=== PATIENT | female | born 1975 | race Asian ===

== ENCOUNTER 2016-09-11 09:37 | Emergency (ER) | payer OTHER ==
[~2016-09-11] VITALS: Ht 185.4 cm; Wt 117.5 kg
[2016-09-11 09:54] VITALS: BP 164/98; TEMP 98.4
[2016-09-11] MEDS ORDERED: AVONEX30 MCG IM (09:58)
[2016-09-11] MEDS ORDERED: PROPRANOLOL60 MG OR (09:59)
== END 2016-09-11 11:45 | disposition home health service (06) ==
LOC: ED 09:37
DX: J11.1 Influenza due to unidentified influenza virus with other respiratory manifestations (principal)
CPT/HCPCS: 87804; 99282

== ENCOUNTER 2017-05-31 22:27 | Emergency (ER) | payer OTHER ==
[~2017-05-31] VITALS: Ht 182.9 cm; Wt 110.7 kg
[~2017-05-31 22:27] MED LIST: AVONEX30 MCG IM; PROPRANOLOL60 MG OR
[2017-05-31] MEDS ORDERED: LISI5TAB10 PO (22:52)
[2017-06-01 00:30] VITALS: BP 138/99; TEMP 97.8
== END 2017-06-01 00:30 | disposition home or self-care (01) ==
LOC: ED 22:27
DX: I16.0 Hypertensive urgency (principal)
CPT/HCPCS: 99283

== ENCOUNTER 2017-10-16 08:32 | Outpatient (CLI) | payer OTHER ==
[~2017-10-16 08:32] MED LIST changes: +LISI5TAB10 PO
== END 2017-10-16 19:17 | disposition home or self-care (01) ==
LOC: MRI 08:32
DX: G35 Multiple sclerosis (principal)
CPT/HCPCS: 36415; 82565; 84520; A9576

== ENCOUNTER 2018-05-17 09:00 | Outpatient (CLI) | payer OTHER ==
[2018-05-17 09:17] LABS: PLATELET COUNT 252 K/uL (152-353)
[2018-05-17 10:12] LABS: POTASSIUM 4.2 mmol/L (3.6-5.2)
== END 2018-05-17 19:41 | disposition home or self-care (01) ==
LOC: LABW 09:00
PROVIDERS: Specialist
DX: G35 Multiple sclerosis (principal); E53.8 Deficiency of other specified B group vitamins; G25.81 Restless legs syndrome
CPT/HCPCS: 36415; 80053; 82607; 85027; 85651

== ENCOUNTER 2018-09-05 10:09 | Outpatient (CLI) | payer OTHER | END 2018-09-05 21:33 | disposition home or self-care (01) | LOC: RAD 10:09 | DX: R05 Cough (principal) ==

== ENCOUNTER 2018-10-11 07:00 | Outpatient (CLI) | payer OTHER ==
[2018-10-11 07:38] LABS: PLATELET COUNT 237 K/uL (152-353)
== END 2018-10-11 22:20 | disposition home or self-care (01) ==
LOC: LABW 07:00
PROVIDERS: Specialist
DX: G35 Multiple sclerosis (principal)
CPT/HCPCS: 36415; 80053; 85027

== ENCOUNTER 2019-09-09 19:10 | Emergency (ER) | payer OTHER ==
[~2019-09-09] VITALS: Ht 180.3 cm; Wt 115.8 kg
[2019-09-09 21:30] VITALS: BP 163/110; TEMP 97.9
== END 2019-09-09 21:30 | disposition home or self-care (01) ==
LOC: ED 19:10
DX: Z04.3 Encounter for examination and observation following other accident (principal)
CPT/HCPCS: 99283

== ENCOUNTER 2019-09-21 14:11 | Outpatient (CLI) | payer OTHER | END 2019-09-21 20:59 | disposition home or self-care (01) | LOC: RAD 14:11 | DX: M54.2 Cervicalgia (principal); M54.5 Low back pain; M54.6 Pain in thoracic spine ==

== ENCOUNTER 2019-10-01 10:48 | Observation (INO) | payer OTHER ==
[~2019-10-01] VITALS: Ht 180.3 cm; Wt 111.8 kg
[2019-10-01] VITALS (13 sets, daily range): BP systolic 148–191; BP diastolic 95–131; TEMP 97–99.1
[2019-10-01 11:32] LABS: PLATELET COUNT 262 K/uL (152-353)
[2019-10-01 11:40] LABS: POTASSIUM 3.9 mmol/L (3.6-5.2); SODIUM 136 mmol/L (136-145)
[2019-10-02] VITALS: BP 109/63; TEMP 99.1
[2019-10-02 03:30] VITALS: BP 123/66; TEMP 99
[2019-10-02 08:24] LABS: POTASSIUM 3.7 mmol/L (3.6-5.2)
[2019-10-02 08:50] VITALS: BP 125/85; TEMP 98.7
[2019-10-02 12:03] VITALS: BP 131/76; TEMP 98.5
[2019-10-02] MEDS ORDERED: GABA300C2 PO (15:03)
[2019-10-02] MEDS ORDERED: PROPRANOLOL10 MG PO (15:05)
[2019-10-02] MEDS ORDERED: RAZADYNE8 MG PO (15:13)
[2019-10-02] MEDS ORDERED: CYCL10TA35 PO ×2 (15:17)
[2019-10-02] MEDS ORDERED: IBU800 MG PO (15:18)
== END 2019-10-02 19:02 | disposition home or self-care (01) ==
LOC: ED 10:48 → MED/SURG 16:15
PROVIDERS: Family Medicine; ADMIT Family Medicine
DX: I10 Essential (primary) hypertension (principal); M79.602 Pain in left arm; G25.81 Restless legs syndrome; G35 Multiple sclerosis; Z79.899 Other long term (current) drug therapy; Z51.81 Encounter for therapeutic drug level monitoring
CPT/HCPCS: 36415; 80053; 80307; 81000; 82550; 83880; 84443; 84484; 85027; 85651; 86140; 93005; 96374; 96375; 99220; 99284; G0378; J0360; J1940; J2930; J3490

== ENCOUNTER 2020-10-31 10:40 | Outpatient (CLI) | payer OTHER ==
[~2020-10-31 10:40] MED LIST changes: +CYCL10TA35 PO; +GABA300C2 PO; +IBU800 MG PO; +PROPRANOLOL10 MG PO; +RAZADYNE8 MG PO
== END 2020-10-31 20:38 | disposition home or self-care (01) ==
LOC: LABW 10:40
PROVIDERS: ATTEND Specialist
DX: G35 Multiple sclerosis (principal)
CPT/HCPCS: 36415; 86255

== ENCOUNTER 2021-08-14 17:13 | Emergency (ER) | payer OTHER ==
[~2021-08-14] VITALS: Ht 180.3 cm; Wt 108.9 kg
[2021-08-14 18:04] LABS: PLATELET COUNT 289 K/uL (152-353)
[2021-08-14 18:08] LABS: POTASSIUM 3.6 mmol/L (3.6-5.2)
[2021-08-14 19:16] LABS: PARTIAL THROMBOPLASTIN TIME 26.1 SECONDS (24.5-33.6)
[2021-08-14 20:05] VITALS: BP 176/95; TEMP 98.1
== END 2021-08-14 20:05 | disposition short-term general hospital (02) ==
LOC: ED 17:13
PROVIDERS: Family Medicine
DX: M79.605 Pain in left leg (principal); M79.604 Pain in right leg; Z96.651 Presence of right artificial knee joint; Z11.52 Encounter for screening for COVID-19
CPT/HCPCS: 36415; 80053; 85027; 85379; 85610; 85730; 87635; 96372; 99284; J1885; U0003

== ENCOUNTER 2022-06-22 13:04 | Outpatient (CLI) | payer OTHER ==
[2022-06-22 13:25] LABS: PLATELET COUNT 243 K/uL (152-353)
[2022-06-22 13:52] LABS: POTASSIUM 3.6 mmol/L (3.6-5.2)
== END 2022-06-22 21:20 | disposition home or self-care (01) ==
LOC: LABW 13:04
PROVIDERS: ATTEND Physician Assistant
DX: M35.89 Other specified systemic involvement of connective tissue (principal)
CPT/HCPCS: 36415; 80069; 81374; 84443; 85027; 85652; 86038; 86060; 86140; 86618

== ENCOUNTER 2022-11-28 12:33 | Outpatient (CLI) | payer OTHER | END 2022-11-28 18:59 | disposition home or self-care (01) | LOC: MRI 12:33 | PROVIDERS: ATTEND Psychiatry & Neurology Neurology | DX: G35 Multiple sclerosis (principal); R41.82 Altered mental status, unspecified; R29.818 Other symptoms and signs involving the nervous system | CPT/HCPCS: 36415; 82565; 84520; A9576 ==

== ENCOUNTER 2022-11-29 12:40 | Outpatient (CLI) | payer OTHER | END 2022-11-29 19:21 | disposition home or self-care (01) | LOC: MRI 12:40 | PROVIDERS: ATTEND Psychiatry & Neurology Neurology | DX: G35 Multiple sclerosis (principal); R41.82 Altered mental status, unspecified; R29.818 Other symptoms and signs involving the nervous system | CPT/HCPCS: A9576 ==

== ENCOUNTER 2023-01-18 12:54 | Outpatient (CLI) | payer OTHER | END 2023-01-18 20:40 | LOC: RESP 12:54 | PROVIDERS: ATTEND Internal Medicine Cardiovascular Disease | DX: Z79.899 Other long term (current) drug therapy (principal); I10 Essential (primary) hypertension; R06.02 Shortness of breath | CPT/HCPCS: 36415; 83880 ==

== ENCOUNTER 2023-02-04 09:57 | Emergency (ER) | payer OTHER ==
[~2023-02-04] VITALS: Ht 180.3 cm; Wt 113.4 kg
[2023-02-04 11:04] LABS: POTASSIUM 3.7 mmol/L (3.6-5.2)
[2023-02-04 11:07] LABS: PLATELET COUNT 234 K/uL (152-353)
[2023-02-04 11:25] VITALS: BP 126/80; TEMP 98.7
== END 2023-02-04 11:24 | disposition home or self-care (01) ==
LOC: ED 09:57
PROVIDERS: Family Medicine
DX: J10.1 Influenza due to other identified influenza virus with other respiratory manifestations (principal); R05.9 Cough, unspecified; J02.9 Acute pharyngitis, unspecified
CPT/HCPCS: 36415; 80053; 85027; 87502; 87635; 87651; 96372; 99283; J1885; J2930; U0003